=== PATIENT | female | born 1960 | race Caucasian/White ===

== ENCOUNTER 2019-02-06 08:35 | Observation (INO) ==
[2019-02-06] MEDS ORDERED: ASPIRIN PO ONE (08:43)
[2019-02-06] MEDS ORDERED: NITROGLYCERIN TOP ONE (09:06)
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
[2019-02-06 09:42] LABS: BASO# 0.08 X1000 (0.0-0.2); BASO% 1.3 % (0.0-0.8); EOS# 0.33 X1000 (0.0-0.7); EOS% 5.2 % (0.0-10.0); HEMATOCRIT 38.8 % (37.0-47.0); HEMOGLOBIN 12.6 g/dL (12.0-16.0); LYMPH# 2.68 X1000 (1.2-3.4); LYMPH% 42.3 % (20.5-51.1); MCH 26.3 PG (27-31); MCHC 32.5 g/dL (33-37); MCV 80.8 FL (81-99); MONO# 0.55 X1000 (0.11-0.59); MONO% 8.7 % (1.7-9.3); MPV 10.8 FL (7.4-10.4); NEUT# 2.69 X1000 (1.4-6.5); NEUT% 42.5 % (42.2-75.2); PLT 267 X1000 (130-400); RDW 14.3 % (11.5-14.5); WBC 6.33 X1000 (4.8-10.8)
[2019-02-06 09:56] LABS: INR 0.87; PROTIME 12.5 Seconds (11.0-16.0)
[2019-02-06 09:59] LABS: D-DIMER 0.52 ug/mLFEU (0.0-0.52)
[2019-02-06 10:03] LABS: AGAP 11; ALB/GLOB RATIO 1.6; ALKALINE PHOSPHATASE 103 U/L (32-104); BUN 17 mg/dL (8-22); CALCIUM 8.7 mg/dL (8.8-10.2); CHLORIDE 101 mmol/L (98-107); CK PROFILE 65 U/L (24-173); COSMO 282; CREATININE 0.6 mg/dL (0.5-0.9); ESTIMATED GFR > 60; GLUCOSE 156 mg/dL (70-104); GOT 12 U/L (10-30); GPT 13 U/L (10-36); MAGNESIUM 1.9 mg/dL (1.5-2.7); POTASSIUM 3.9 mmol/L (3.5-5.1); SODIUM 139 mmol/L (136-145); TCO2 27 mmol/L (25-35); TOTAL BILIRUBIN 0.22 mg/dL (0.20-1.00); TOTAL PROTEIN 6.5 g/dL (6.3-8.3)
--- NOTE | 2019-02-06 10:07 | Diag Imaging Result Doc PS360 ---
EXAM: CHEST-2 VIEWS INDICATION: cp TECHNIQUE: 2 views COMPARISON: 11/15/2017 FINDINGS: The lungs are grossly clear. There is no discrete pleural fluid collection or pneumothorax. The cardiac silhouette is borderline prominent but stable. Central vasculature is unremarkable. IMPRESSION: Borderline prominent heart. No definite acute chest pathology by plain radiograph. Electronically signed by Swapnil Lara 02/06/2019 10:05 AM
[2019-02-06 10:15] LABS: PTT 27.6 Seconds (22.3-41.8)
[2019-02-06] MEDS ORDERED: ZOFRAN IV PRN (11:03)
[2019-02-06] MEDS ORDERED: TYLENOL PO PRN (11:03)
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
[2019-02-06] MEDS: NEURONTIN PO SCH ×2 (16:10→21:40)
[2019-02-06] MEDS: HUMALOG SUBQ SCH ×2 (17:42→21:41)
--- NOTE | 2019-02-06 17:52 | Diag Imaging Result Doc PS360 ---
EXAM: CT ANGIOGRM PULMONARY ARTERIES INDICATION: chest pain TECHNIQUE: This exam was performed using automated exposure control, adjustment of mA or kV according to patient size, and/or use of iterative reconstruction technique. Thin section axial images and 3-D MIPS were obtained. COMPARISON: 01/27/2019 FINDINGS: There is no evidence of pulmonary embolism. There is no evidence of aortic dissection or aneurysm. The heart is borderline prominent but stable. No significant mediastinal or hilar lymphadenopathy is appreciated. There is subsegmental atelectasis at both lung bases. There is no pleural fluid collection and no pneumothorax. Limited views of the upper abdomen reveals hepatic steatosis. IMPRESSION: 1.Bibasilar subsegmental atelectasis. 2.No evidence of pulmonary embolism. Electronically signed by Swapnil Lara 02/06/2019 5:50 PM
[2019-02-06] MEDS: ROBAXIN PO SCH (21:40)
[2019-02-07 06:20] LABS: BASO# 0.12 X1000 (0.0-0.2); BASO% 1.8 % (0.0-0.8); EOS% 4.4 % (0.0-10.0); HEMATOCRIT 37.9 % (37.0-47.0); HEMOGLOBIN 12.3 g/dL (12.0-16.0); LYMPH# 2.47 X1000 (1.2-3.4); LYMPH% 36.1 % (20.5-51.1); MCH 26.3 PG (27-31); MCHC 32.5 g/dL (33-37); MCV 81.2 FL (81-99); MONO# 0.55 X1000 (0.11-0.59); MPV 10.6 FL (7.4-10.4); NEUT% 49.7 % (42.2-75.2); PLT 260 X1000 (130-400); RBC 4.67 XMIL (4.2-5.4); RDW 14.4 % (11.5-14.5); WBC 6.84 X1000 (4.8-10.8)
[2019-02-07 06:45] LABS: AGAP 9; ALB/GLOB RATIO 1.3; ALBUMIN 3.6 g/dL (3.5-5.0); ALKALINE PHOSPHATASE 98 U/L (32-104); BUN 12 mg/dL (8-22); CALCIUM 8.8 mg/dL (8.8-10.2); CHLORIDE 100 mmol/L (98-107); COSMO 278; CREATININE 0.6 mg/dL (0.5-0.9); ESTIMATED GFR > 60; GLUCOSE 175 mg/dL (70-104); GOT 16 U/L (10-30); GPT 16 U/L (10-36); SODIUM 137 mmol/L (136-145); TCO2 28 mmol/L (25-35); TOTAL BILIRUBIN 0.15 mg/dL (0.20-1.00); TOTAL PROTEIN 6.4 g/dL (6.3-8.3)
[2019-02-07 06:47] LABS: IRON SATURATION 16 %; TIBC 255 ug/dL; TOTAL IRON 41 ug/dL (49-151); UNBOUND IRON 214 ug/dL (112-346)
[2019-02-07 06:50] LABS: FERRITIN 90 ng/mL (13-150)
[2019-02-07] MEDS: HUMALOG SUBQ SCH (06:57)
--- NOTE | 2019-02-07 07:30 | EKG Report ---
Test Performed on : 02/07/2019 07:03:19 AM Test Reason : CP Blood Pressure : / mmHG Vent. Rate : 067 BPM Atrial Rate : 067 BPM P-R Int : 160 ms QRS Dur : 076 ms QT Int : 410 ms P-R-T Axes : 054 010 014 degrees QTc Int : 433 ms Normal sinus rhythm. Septal infarct (cited on or before 06-FEB-2019) Abnormal ECG When compared with ECG of 06-FEB-2019 08:46, (Unconfirmed) No significant change was found Confirmed by Fili MICHAEL, Bucky Ambrosio ([id number]) on 02/07/2019 7:59:17 AM
[2019-02-07 07:37] VITALS: BP 110/92
[2019-02-07] MEDS: NEURONTIN PO SCH (09:15)
[2019-02-07] MEDS: ROBAXIN PO SCH (09:15)
--- NOTE | 2019-02-07 11:02 | EKG Report ---
Test Performed on : 02/06/2019 08:46:40 AM Test Reason : cp Blood Pressure : / mmHG Vent. Rate : 072 BPM Atrial Rate : 072 BPM P-R Int : 144 ms QRS Dur : 076 ms QT Int : 388 ms P-R-T Axes : 029 011 008 degrees QTc Int : 424 ms Normal sinus rhythm. Low voltage QRS Septal infarct , age undetermined Abnormal ECG When compared with ECG of 15-NOV-2017 09:44, Nonspecific T wave abnormality now evident in Anterior leads Unconfirmed Result
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
[2019-02-07] MEDS ORDERED: LEXISCAN ONE (11:34)
--- NOTE | 2019-02-07 14:46 | Diag Imaging Result Document ---
PROCEDURE NAME: MYOCARDIAL PERF SCAN, STR/REST - 02/07/2019 INDICATION: This is a 58-year-old female with chest pain, dyspnea and hypertension. DESCRIPTION OF PROCEDURE: The patient came into the nuclear lab and received a rest injection of technetium 99 sestamibi 14.8 mCi. Multiple tomographic views of the cardiac structures were obtained at rest. Subsequently the patient underwent a Lexiscan protocol and at peak infusion was injected with technetium 99 sestamibi 42.1 mCi. Multiple tomographic views of the cardiac structures were obtained following completion of the protocol. SUMMARY OF ELECTROCARDIOGRAPHIC PORTION OF THE STUDY: Resting ECG shows sinus rhythm at rate of 64 beats per minute. Resting blood pressure is 150/84. Resting ECG shows no significant abnormality. During the infusion of Lexiscan, the heart rate increased to 93 beats per minute. Blood pressure dropped to 141/85. The patient reported no chest pain, shortness of breath or palpitations. ECG showed no significant changes. CONCLUSIONS: In summary, electrocardiographic response to infusion of Lexiscan is deemed to be unremarkable. SUMMARY OF MYOCARDIAL PERFUSION PORTION OF THE STUDY: Poststress tomographic views of the left ventricle showed normal homogeneous distribution of radiotracer throughout the entire left ventricular myocardium. There is no evidence of any postexercise defect. The rest images showed normal perfusion. The polar plots revealed the same. There is no evidence of neither inducible ischemia nor myocardial scar. Gated SPECT shows normal left ventricular systolic function. Ejection fraction is estimated at 88% with normal ventricular volumes and no wall motion abnormality. Lung/heart ratio is normal. TID is normal. CONCLUSIONS: In summary, this study showed: 1. Normal electrocardiographic response to infusion of Lexiscan. 2. Normal poststress myocardial perfusion scan. There is no scintigraphic evidence of pharmacologically induced myocardial ischemia. 3. Normal left ventricular systolic function. Ejection fraction is estimated at 88% with normal ventricular volumes and no wall motion abnormality. 4. This study represents low risk for ischemic events. cc: MD Kavitha Felix CRNP
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
== END 2019-02-07 16:43 | disposition home or self-care (01) ==
LOC: 4N 08:35 → ED 08:35 → SUATTDRO 08:36 → 4N 11:52
PROVIDERS: ATTEND Emergency Medicine
CPT/HCPCS: 71020; 71046; 71275; 78452; 80053; 82550; 82607; 82728; 82746; 82948; 83540; 83550; 83735; 83880; 84484; 85025; 85379; 85610; 85730; 93005; 93010; 93017; 99285; A9270; A9500; J1815; J2785; Q9967; XXXXX